=== PATIENT | female | born 1955 | race Caucasian/White ===

== ENCOUNTER 2018-02-13 13:24 | Outpatient (CLI) | payer BC | END 2018-02-13 13:25 | disposition home or self-care (01) | LOC: BICMAMMO 13:24 | PROVIDERS: ATTEND Internal Medicine Hematology & Oncology | DX: Z12.31 Encounter for screening mammogram for malignant neoplasm of breast (principal); Z85.3 Personal history of malignant neoplasm of breast | CPT/HCPCS: 77063; 77067 ==

== ENCOUNTER 2018-12-09 17:16 | Observation (INO) | payer MEDICARE, BC ==
[~2018-12-09 17:16] MED LIST: ISOVUE-370 76%-LOCM 1 ML ONE
[2018-12-09 18:09] LABS: #Eosinphils 0.1 thou/uL (0.0-0.7); #Lymphocytes 1.8 thou/uL (1.20-3.40); #Monocytes 0.6 thou/uL (0.11-0.59); #Neutrophils 3.7 thou/uL (1.40-6.50); %Basophils 0.7 % (0.0-1.0); %Eosinophils 1.7 % (0.0-10.0); %Lymphocytes 28.7 % (21.0-51.0); %Monocytes 9.6 % (0.0-10.0); %Neutrophils 59.2 % (42.0-75.0); Hemoglobin 13.1 g/dL (12.0-16.0); Mean Corpuscular HGB CONC 32.7 g/dL (32.0-36.0); Mean Corpuscular Hemoglobin 31.1 pg (27.0-31.0); Mean Platelet Volume 7.4 fL (7.4-10.4); Platelet Count 311 thou/uL (130-400); RBC Distribution Width 12.9 % (11.5-14.5); Red Blood Cell (RBC) Count 4.21 mill/uL (4.20-5.40); White Blood Cell (WBC) Count 6.3 thou/uL (4.8-10.8)
[2018-12-09 18:30] LABS: ALT (SGPT) 22 U/L (8-55); AST (SGOT) 23 U/L (5-34); Albumin 4.2 g/dL (3.4-4.8); Alkaline Phosphatase 102 U/L (40-150); Anion Gap 16 mmol/L (10-20); BUN (Urea Nitrogen) 20 mg/dL (9.8-20.1); Bilirubin, Total 0.3 mg/dL (0.2-1.2); CK (CPK) 117 U/L (29-168); Calc. Creatinine Clearance 0 mL/min (70-130); Calcium 8.8 mg/dL (7.8-10.44); Carbon Dioxide 23 mmol/L (23-31); Chloride 105 mmol/L (98-107); Estimated GFR-MDRD 67; Globulin 3.3 g/dL (2.4-3.5); Glucose 122 mg/dL (80-115); Potassium 3.7 mmol/L (3.5-5.1); Protein, Total 7.5 g/dL (6.0-8.3); Sodium 140 mmol/L (136-145)
[2018-12-09 19:03] LABS: CKMB 1.7 ng/mL (0-6.6)
[2018-12-09] MEDS ORDERED: Enoxaparin Sodium 80 MG/0.8 ML SYRINGE ONE (19:08)
[2018-12-09] MEDS ORDERED: Aspirin 325 MG TAB ONE (19:08)
[2018-12-09] MEDS ORDERED: Aspirin Chewable 81 MG TAB ONE (19:16)
--- NOTE | 2018-12-09 19:29 | CT ---
CT angiogram head: 12/09/2018 COMPARISON: None HISTORY: Left arm pain and left facial paresthesias TECHNIQUE: Axial CT imaging at 5 mm intervals from the vertex through the skull base without contrast . Axial CT imaging then performed with IV contrast using CT angiogram protocol at 1.25 mm intervals from vertex through skull base with coronal and sagittal 3-D reformatted imaging FINDINGS: The noncontrast enhanced imaging demonstrates no intracranial hemorrhage, midline shift, or mass effect. The imaged paranasal sinuses and mastoid air cells appear well aerated. Visualized distal vertebral arteries are unremarkable. The basilar artery and its branches are patent . There is no saccular aneurysm, high-grade stenosis, or vascular occlusion seen involving the posterior circulation. The imaged extracranial ICA appears unremarkable bilaterally. The A1 segment and the M1 segment appea rs unremarkable bilaterally. Distal MARLENY branches are unremarkable. The MCA bifurcation appears within normal limits. The distal MCA branches appear unremarkable bilaterally. No saccular aneurysm, high-grade stenosis, o r vascular occlusion is appreciated involving the anterior circulation. IMPRESSION: Noncontrast enhanced imaging demonstrates no acute findings. CT angiography demonstrates no central arterial occlusion.
[2018-12-09 21:46] LABS: Troponin I 0.346 ng/mL (< 0.028)
[2018-12-09 23:27] VITALS: BMI 28.5
[2018-12-10] MEDS ORDERED: Ondansetron PF 4 MG/2 ML Vial IVP PRN (01:20)
[2018-12-10] MEDS ORDERED: hydrALAZINE 20 MG/ML VIAL SLOW IVP PRN (01:20)
[2018-12-10] MEDS ORDERED: Nitroglycerin 0.4 MG TAB (25 Tab Bottle) SL PRN (01:20)
[2018-12-10] MEDS ORDERED: Acetaminophen 500 MG TAB PO PRN (01:20)
[2018-12-10] MEDS ORDERED: Ondansetron ODT 4 MG TAB PO PRN (01:20)
[2018-12-10 01:30] LABS: Critical Call Chem Troponin I RESULT DECREASING; Troponin I 0.308 ng/mL (< 0.028)
--- NOTE | 2018-12-10 03:51 | HP ---
PRIMARY CARE PROVIDER: Yonis Brown MD CHIEF COMPLAINT: Left arm and facial tingling. HISTORY OF PRESENT ILLNESS: This is a 63-year-old female who presents to [facility] Emergency Department complaining of 1-day history of left arm and facial tingling which began in the head scorer hours of 12/09/2018. The patient states she initially felt like she may have slept on her arm wrong thinking that the symptoms would elvia; however, they persisted for several hours after first noticing them. The patient denied any associated difficulty with speech, gait changes, or visual disturbance. The patient states she is right-hand dominant, but denied any direct trauma, injury, fever, chills, or similar symptoms in the past. The patient does admit to recent cardiac workup including cardiac catheterization completed approximately 4 to 5 days prior to this evaluation without stent placement or an acute intervention. The patient was medically managed including aspirin, carvedilol, and lisinopril. The patient states she was placed on aspirin 81 mg daily and has been taking aspirin therapy over the last 4 weeks. The patient states she remains very active with her [employer] and house work and denies being sedentary. In the emergency room, the patient underwent general evaluation including EKG and metabolic screening. The patient was noted with mild elevation of troponin I ranged between 0.308 to 0.346. The patient was given Lovenox and full-dose aspirin in the emergency room for suspected non-ST elevation myocardial infarction. PAST MEDICAL HISTORY: 1. Myocardial infarction, likely due to thrombus. 2. History of breast cancer diagnosed in 2004. 3. Hypothyroidism, status post thyroidectomy. PAST SURGICAL HISTORY: 1. Status post cardiac catheterization on 12/05/2018. 2. Status post left breast lumpectomy. 3. Status post thyroidectomy. CURRENT MEDICATIONS: 1. Carvedilol 3.125 mg p.o. b.i.d. 2. Levothyroxine 100 mcg p.o. daily. 3. Lisinopril 2.5 mg p.o. b.i.d. 4. Nitroglycerin 0.4 mg sublingually p.r.n. chest pain. 5. Glycopyrrolate half a tablet p.o. b.i.d. 6. Enteric-coated aspirin 81 mg p.o. daily. ALLERGIES: CODEINE SULFATE. FAMILY HISTORY: No inheritable disease per patient report. SOCIAL HISTORY: The patient is . Resides in [place], [place]. 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 Functional of all activities of daily living. No current alcohol, tobacco, or illicit drug use. REVIEW OF SYSTEMS: CONSTITUTIONAL: Negative for weight loss or gain, ability to conduct usual activities. SKIN: Negative for rash, itching. EYES: Negative for double vision, pain. ENT/MOUTH: Negative for nose bleeding, neck stiffness, pain, tenderness. CARDIOVASCULAR: Negative for palpitations, dyspnea on exertion, orthopnea. RESPIRATORY: Negative for shortness of breath, wheezing, cough, hemoptysis, fever or night sweats. GASTROINTESTINAL: Negative for poor appetite, abdominal pain, heartburn, nausea, vomiting, constipation, or diarrhea. GENITOURINARY: Negative for urgency, frequency, dysuria, nocturia. MUSCULOSKELETAL: Negative for pain, swelling. NEUROLOGIC/PSYCHIATRIC: Negative for anxiety, depression. ALLERGY/IMMUNOLOGIC: Negative for skin rash, bleeding tendency. Otherwise, negative except as stated per HPI. PHYSICAL EXAMINATION: VITAL SIGNS: On admission, blood pressure 133/70, pulse 85, respiratory rate 18, temperature 98 degrees Fahrenheit, O2 saturation 97% on room air. GENERAL APPEARANCE: This is a 63-year-old female, alert and oriented x3, pleasant, conversant, in no acute distress. HEENT: Pupils are equal, round, and reactive to light and accommodation. Extraocular muscles are intact. No scleral icterus. No conjunctival injection. Nares are patent. Op is clear. NECK: Supple. No cervical adenopathy. No thyromegaly. No carotid bruits. No JVD appreciated. No meningeal signs noted. CHEST: Lungs are clear to auscultation bilaterally. CARDIOVASCULAR: S1 and S2 without noted murmur, rub, or gallop. ABDOMEN: Rounded, soft, nontender, and nondistended. Bowel sounds are positive in all 4 quadrants. No hepatosplenomegaly. No abdominal bruits. No rebound or guarding appreciated. EXTREMITIES: Warm and dry with fair turgor. No clubbing, cyanosis, or asymmetric edema appreciated. Pulses are palpable distally at the dorsalis pedis, posterior tibial, and popliteal arteries bilaterally. Capillary refill less than 2 seconds. NEUROLOGIC: Cranial nerves II through XII are grossly intact. No focal or lateralizing signs appreciated. PERTINENT LAB AND X-RAY FINDINGS: Basic metabolic profile within normal limits. LFTs within normal limits. Troponin I ranged between 0.308 to 0.346. CBC within normal limits. CT angiogram of the [place] dated 12/09/2018, showed no acute focal stenosis. EKG dated 12/09/2018, by my interpretation shows sinus mechanism with heart rates in the 80s, attenuated R-waves noted in the precordial leads, normal axis, no acute ST-T wave changes appreciated. ASSESSMENT AND PLAN: 1. Non-ST elevation myocardial infarction. Suspected given patient's current troponin trend, recent left heart cardiac catheterization may be contributing source of elevated troponin I. We will continue aspirin 81 mg daily. Start Lipitor 40 mg p.o. daily. Continue carvedilol and lisinopril. Consult Cardiology Service for any further recommendations and management. 2. Left upper extremity paresthesias, exact etiology unclear. We will check carotid Doppler study to rule out focal stenosis. Continue aspirin 81 mg daily. Continue to monitor clinical response. 3. Coronary artery disease. Apparent thrombus as underlying etiology after recent cardiac catheterization. Continue aspirin as outlined previously. Start Lipitor 40 mg p.o. at bedtime. 4. Hypertension. Resume home blood pressure regimen and titrate to optimal response. 5. Prophylaxis. Sequential compression devices while in bed. Pepcid 20 mg p.o. b.i.d. CODE STATUS: Full. Surrogate medical decision maker is the patient's spouse. Job ID: [id number]
[2018-12-10 04:47] LABS: Band 5 % (5-11); Eosinophils 2 % (0-10); Hemoglobin 12.1 g/dL (12.0-16.0); Lymphocytes 30 % (21-51); MDiff Complete? YES; Mean Corpuscular HGB CONC 33.5 g/dL (32.0-36.0); Mean Corpuscular Hemoglobin 31.7 pg (27.0-31.0); Mean Corpuscular Volume 94.5 fL (78.0-98.0); Mean Platelet Volume 7.6 fL (7.4-10.4); Monocytes 5 % (0-10); Neutrophil 56 % (42-75); Platelet Count 272 thou/uL (130-400); Platelet Morphology Comment Appears Adequate; Reactive Lymphocytes 2 % (0-10); Red Blood Cell (RBC) Count 3.83 mill/uL (4.20-5.40); White Blood Cell (WBC) Count 6.3 thou/uL (4.8-10.8)
[2018-12-10 04:56] LABS: Anion Gap 14 mmol/L (10-20); BUN (Urea Nitrogen) 19 mg/dL (9.8-20.1); Calc. Creatinine Clearance 85 mL/min (70-130); Calcium 8.1 mg/dL (7.8-10.44); Carbon Dioxide 24 mmol/L (23-31); Chloride 107 mmol/L (98-107); Estimated GFR-MDRD 83; Glucose 90 mg/dL (80-115); Potassium 3.5 mmol/L (3.5-5.1); Sodium 141 mmol/L (136-145)
[2018-12-10] MEDS ORDERED: Levothyroxine Sodium 100 MCG TAB PO SCH (06:00)
--- NOTE | 2018-12-10 08:29 | ULT ---
BILATERAL CAROTID DUPLEX ULTRASOUND: HISTORY: Left upper kidney paresthesias TECHNIQUE: Grayscale, color-flow and spectral Doppler ultrasound imaging of the extracranial carotid artery syst ems was performed bilaterally. FINDINGS: Mild plaque formation. The peak systolic velocity in the right ICA measures 78 cm/s. The peak systolic velocity in the left ICA measures 69 cm/s. Vertebral flow: antegrade, bilaterally. IMPRESSION: No hemodynamically significant stenosis of Both ICAs.
[2018-12-10] MEDS ORDERED: Aspirin 81 mg Enteric Coated Tablet PO SCH (09:00)
[2018-12-10] MEDS ORDERED: Glycopyrrolate 1 MG TAB PO SCH (09:00)
[2018-12-10] MEDS ORDERED: Carvedilol 3.125 MG TAB PO SCH (09:00)
[2018-12-10] MEDS ORDERED: Lisinopril 5 MG TAB PO SCH (09:00)
[2018-12-10] MEDS ORDERED: Famotidine 20 MG TAB PO SCH (09:00)
--- NOTE | 2018-12-10 14:40 | CON ---
DATE OF CONSULTATION: PRIMARY CARE DOCTOR: Yonis Brown MD PRIMARY GENERAL UTILITY WORKER: Elzbieta Chris MD REASON FOR CARDIOLOGY CONSULT: Non-STEMI. HISTORY OF PRESENT ILLNESS: Ms. Cannon is a 63-year-old female with a significant history of Lakeisha-Fitzpatrick disease, hypothyroidism, chronic systolic heart failure with EF 35% to 40%, coronary artery disease with status post cardiac catheterization in November 2018 with 100% occlusion in the LAD with akinetic and dyskinetic distal inferior wall and distal anterior apex. The patient states that she had a chest heaviness on November 21, 2018. At that time, she refused to go to the Emergency Department for further evaluation. She had shortness of breath, feeling fatigued for couple days. Then, she had a cardiac catheterization on December 05 and she find out she had a clot in her LAD. She came to Emergency Department for tingling to her bilateral upper arm and to the face. She denied any chest pain, heaviness, tightness, shortness of breath, dizziness, lightheadedness, or any other cardiac complaints. She continued having the mild tingling to the left upper arm; however, she denied any other cardiac complaints at this moment. The patient had echocardiograms done on November 28, 2018, with EF 35% to 40%, akinetic apex, mild left atrial enlargement, [id number] mitral valve regurgitation, mild tricuspid regurgitation, and moderate elevated right ventricular systolic pressure. The patient had underwent a cardiac catheterization on December 05, 2018, with 100% occlusion in the mid LAD, akinetic and dyskinetic distal anterior apex and distal anterior wall with EF 35% to 40%. PAST MEDICAL HISTORY: Myocardial infarction most likely due to the thrombosis, history of breast cancer in 2004, hypothyroidism, and Lakeisha-Fitzpatrick disease. PAST SURGICAL HISTORY: 1. Cardiac catheterization on December 05, 2018. 2. Status post left breast lumpectomy. 3. Status post thyroidectomy. FAMILY HISTORY: There is a significant family history of diabetes and hypertension, and the patient's father had a history of heart disease and stroke. SOCIAL HISTORY: She is . She is living with her . She has a children, who live well. She does not do the exercise. She denies EtOH, tobacco, or illicit drug abuse. ALLERGIES: SHE IS ALLERGIC TO CODEINE. MEDICATIONS: The patient's current medications; 1. Carvedilol 3.125 mg twice a day. 2. Lisinopril 2.5 mg twice a day. 3. Synthroid 112 mcg tablet once a day. 4. Nitroglycerin 0.4 mg as needed. 5. Glycopyrrolate half tablet twice a day. 6. Aspirin 81 mg once a day. REVIEW OF SYSTEMS: A 12-point review of systems negative unless otherwise mentioned in the HPI. PHYSICAL EXAMINATION: VITAL SIGNS: Blood pressure 111/68, temperature 98.2, pulse is 71 and sinus rhythm, respiratory rate 16, and O2 saturation 92% with room air. GENERAL: The patient is alert and oriented x4, not in acute distress. HEENT: Head, normocephalic and atraumatic. Eyes, extraocular muscle movement intact. ENT and mouth, oral and nasal mucosa moist without lesion. NECK: Supple. Normal range of motion. No JVD. RESPIRATORY: Clear to auscultate bilaterally. No wheezing, rales, or rhonchi noted. CARDIOVASCULAR: Regular rate and rhythm. Normal S1 and S2. There is no S3 or S4. No significant murmur, hives, or thrill noted. 2+ pulses in the bilateral lower extremities. No edema in the lower extremities. ABDOMEN: Soft and nontender. No mass to palpitate. Bowel sounds are present. SKIN: Warm and dry. No lesion, erythema, or rash noted. MUSCULOSKELETAL: The patient is able to move all extremities without difficulty. However, the patient had still pain in the bilateral upper extremities with movement. NEUROLOGIC: The patient is alert and oriented x4, nonfocal. PSYCHIATRIC: The patient's mood is appropriate. RADIOLOGY: CT angiogram in the brain shows no central artery occlusion. The patient is going to have CA today. The patient had carotid Doppler study, which showed no significant stenosis in bilateral ICA. LABORATORY DATA: Hematology; WBC 6.3, hemoglobin 12.1, hematocrit 36.1, and platelets 272. Sodium 141, potassium 3.5, BUN 19, and creatinine 0.71. CK-MB 1.7 and troponin 0.316, 0.346, and 0.308. ASSESSMENT AND PLAN: 1. Type 2 myocardial infarction. The patient's troponin is indeterminate, possible due to recent myocardial infarction from thrombosis in mid left anterior descending, possible on November 21, 2018. At this moment, the patient denied any chest pain, heaviness, tightness, or any other cardiac complaints. We discuss above viability study; however, the patient and family member would like to think about the test. If the patient agreed to have the test, we can order as an outpatient. The patient's blood pressure is stable at this moment. She is on aspirin 81 mg once a day, atorvastatin 40 mg once a day, carvedilol 3.125 mg once a day, lisinopril 2.5 mg twice a day, and nitroglycerin 0.4 mg sublingual. 2. Chronic systolic heart failure. Ejection fraction 35% to 40%. She is stable with room air. She denied edema in lower extremities. Abdomen bloating. She is on carvedilol and lisinopril. She does not have any diuretic at this moment. However, there are no edema or complaining of shortness of breath at this moment. The patient's creatinine is stable at this moment. 3. Hypothyroidism. She is on thyroid medication, which is managed by primary care doctor. 4. Lakeisha-Fitzpatrick disease, which is managed by primary care doctor also. Thank you very much for allowing the Cardiology Service to participate in this patient. We will follow along the patient's care team and make further recommendations as appropriate. Job ID: [id number]
--- NOTE | 2018-12-10 15:08 | PDOC.CTH ---
Cardiology Progress Note - Objective Vital Signs Temp Pulse Resp BP Pulse Ox 12/10/18 11:06 98.2 F 71 16 111/68 92 L 12/10/18 09:55 71 12/10/18 07:37 97.8 F 71 16 92/51 L 91 L 12/10/18 04:00 97.7 F 72 16 103/56 L 93 L Weight 151 lb 12/09/18 12/10/18 12/11/18 06:59 06:59 06:59 Intake Total 410 480 Balance 410 480 - Labs Result Diagrams: 12/10/18 04:13 12/10/18 04:13 Troponin/CKMB CK-MB (CK-2) 1.7 ng/mL (0-6.6) 12/09/18 18:05 Troponin I 0.308 ng/mL (< 0.028) H* 12/10/18 00:39 - Assessment/Plan <addendum> The pt and family reported that she has hx of breast cancer and radiation therapy. The radiation therapy for breast cancer may increase the risk of scar to LAD.
--- NOTE | 2018-12-10 15:50 | MRI ---
MRI OF THE BRAIN WITHOUT CONTRAST: 12/10/18 HISTORY: Left facial/arm paresthesia. FINDINGS: Correlation is made with the previous day's CT scan. No restricted diffusion is seen. No evidence of infarct, hemorrhage, midline shift or abnormal extra- axial fluid collections is noted. The ventricular size is appropriate and the basilar cisterns patent . There is mucosal disease in the paranasal sinuses. IMPRESSION: No evidence of acute intracranial process. POS: OFF
[2018-12-10 15:58] VITALS: BP 100/60; TEMP 98.2
[2018-12-10] MEDS ORDERED: Lisinopril 2.5 MG TAB PO SCH (21:00)
[2018-12-10] MEDS ORDERED: Prevnar 13-Val Conj/PF 0.5 ML SYRINGE IM ONE (21:00)
[2018-12-10] MEDS ORDERED: Atorvastatin Calcium 40 MG TAB PO SCH (21:00)
--- NOTE | 2018-12-11 01:10 | DIS ---
DATE OF ADMISSION: 12/09/2018 DATE OF DISCHARGE: 12/10/2018 CHIEF COMPLAINT ON ADMISSION: Left arm and facial tingling. DISCHARGE DIAGNOSES: 1. Left upper extremity and facial paresthesias, resolved, unknown etiology, questionably transient ischemic attack versus anginal equivalent, acute cerebrovascular accident ruled out. 2. Type 2 myocardial infarction with troponin 0.316, 0.346, and 0.308 respectively. This may be residual after a suspected myocardial event on November 21, 2018. 3. Previous myocardial infarction, left heart catheterization performed December 05, 2018, revealed complete occlusion of the mid LAD. 4. Ischemic cardiomyopathy without acute exacerbation, EF 35% to 40%. 5. Hypertension. 6. History of breast cancer, status post treatment. BRIEF HOSPITAL COURSE: Ms. Cannon is a pleasant 63-year-old female, who presented to the hospital after having some episodes of left facial numbness as well as left arm tingling. The patient was concerned about a possible cardiac event given her recent diagnosis of previous MD, which likely occurred on November 21 and subsequent heart catheterization on December 05, just several days ago. When she arrived to the emergency department, her troponin was noted to be elevated as above. She was given aspirin, Lovenox, and admitted for risk stratification and Cardiology consult. Dr. Chris, her media specialist, did see the patient and recommended continued medical management with possibility of a viability study in the future as an outpatient, which the patient will consider. There was some concern for transient ischemic attack. Given the patient's presenting symptoms, she did have CTA of the head and neck, which revealed no significant stenosis. Brain MRI showed no acute intracranial abnormalities. She was cleared for discharge by Cardiology. The patient has no complaints at this time. Her presenting symptoms have all resolved and workup here has been negative aside from the troponin, which is likely residual from previous cardiac event. DISCHARGE CONDITION: Stable. DISCHARGE DISPOSITION: Home. FOLLOWUP CARE AND INSTRUCTIONS: The patient will follow up with Dr. Chris as recommended. She will continue her cardiac medications to include aspirin, statin, carvedilol 3.125 mg b.i.d., and lisinopril 2.5 daily. She will continue sublingual nitroglycerin p.r.n. I have explained to the patient that her symptoms could possibly be a result of some cervical radiculopathy, and she will follow up with her primary care physician regarding this. She will follow up with Dr. Chris regarding future cardiac testing including viability study. The patient will be discharged home in good condition today. She has been counseled heavily on heart healthy and low-sodium diet given her mildly reduced left ventricular systolic function. She has no overt signs of volume overload at this time. Job ID: [id number]
--- NOTE | 2018-12-11 15:41 | EKG ---
Test Reason : Blood Pressure : / mmHG Vent. Rate : 086 BPM Atrial Rate : 086 BPM P-R Int : 142 ms QRS Dur : 080 ms QT Int : 362 ms P-R-T Axes : 054 023 091 degrees QTc Int : 433 ms Normal sinus rhythm Low voltage QRS Possible Inferior infarct , age undetermined Cannot rule out Anterior infarct , age undetermined Abnormal ECG Confirmed by BABAR LOMELI, TOD Glasgow ([id number]), multimedia editor ALESSANDRA MASTERS ([id number]) on 12/11/2018 3:40:59 PM Referred By: Confirmed By:TOD ECKERT MD
--- NOTE | 2018-12-12 00:18 | CON ---
DATE OF CONSULTATION: 12/10/2018 INDICATION FOR CONSULTATION: A 63-year-old female with tingling, chest discomfort, history of coronary artery disease. We were asked to see her due to the abnormal symptoms which she has had these somewhat similar to what she has had in the past when she did suffer a myocardial infarction. Unfortunately, she was unaware that she had an SD until she underwent cardiac catheterization. She did have some pain back in earlier in October or November when I saw her. She eventually underwent cardiac catheterization after having the abnormal stress test and she was found to have a completely occluded left anterior descending artery. The other vessels remained patent. Her ejection fraction was 35% to 40%. In further discussion with the patient, she did admit that she has had breast cancer and underwent radiation therapy and this is the likely etiology of the stenosis and the occlusion of the left anterior descending artery. The distal anterior wall was akinetic and dyskinetic. It was not felt that even trying to open this totally occluded vessel would change any of her myocardial function. PAST MEDICAL HISTORY: Please refer to the notes dictated by the nurse practitioner. SOCIAL HISTORY: Please refer to the notes dictated by the nurse practitioner. FAMILY HISTORY: Please refer to the notes dictated by the nurse practitioner. REVIEW OF SYSTEMS: Please refer to the notes dictated by the nurse practitioner. MEDICATIONS: Please refer to the notes dictated by the nurse practitioner. ALLERGIES: PLEASE REFER TO THE NOTES DICTATED BY THE NURSE PRACTITIONER. PHYSICAL EXAMINATION: GENERAL: Reveals a well-developed, well-nourished female, who is in no acute distress. VITAL SIGNS: Stable. Blood pressure was 110/68, heart rate was 71 and regular, respiratory rate was 16. HEENT: Unremarkable. CHEST: Clear to auscultation. CARDIOVASCULAR: Revealed a regular rate and rhythm with normal S1 and S2. No significant murmurs, heaves, thrills, bruits, or rubs are noted. ABDOMEN: Soft and nontender. Positive bowel sounds were present. NEUROLOGIC: The patient appeared to be fully intact with normal strength and normal tone. She was complaining of some discomfort and tingling or pain in the upper extremities and also radiation more into the left arm. Otherwise, there were no significant EKG changes. NEUROLOGIC: The patient had no gross focal motor deficit. She had normal strength and normal tone. SKIN: Warm and dry. PSYCHOSOCIAL: Appeared to be within normal limits. IMAGING: CT scan showed evidence of no significant findings. She was to undergo an MRI. LABORATORY DATA: Also was unremarkable for any significant elevation of the cardiac enzymes more than usual. She has had a slight elevation, but the cardiac enzymes remained at 0.31 and then 0.34, and then 0.308. IMPRESSION: 1. Middle-aged female with history of previous myocardial infarction, totally occluded left anterior descending artery. The other vessels had no evidence of stenosis or plaque formation. It is felt that this was due to previous radiation therapy. At this time, we would just continue medical management. She is not a candidate for further intervention. 2. Congestive heart failure with ejection fraction of 35% to 40%. She does not meet requirements for defibrillator. She has been stable and without any evidence of arrhythmias. We will continue her on present medications. Overall cardiac status, she appears to be stable. Job ID: [id number]
== END 2018-12-10 17:25 | disposition home or self-care (01) ==
LOC: ERS 17:16 → 2SE 22:49
PROVIDERS: ADMIT Internal Medicine; ATTEND Internal Medicine
DX: R20.2 Paresthesia of skin (principal); I21.A1 Myocardial infarction type 2; I25.5 Ischemic cardiomyopathy; I10 Essential (primary) hypertension; E89.0 Postprocedural hypothyroidism; I25.10 Atherosclerotic heart disease of native coronary artery without angina pectoris; Z79.82 Long term (current) use of aspirin; Z79.899 Other long term (current) drug therapy; Z88.2 Allergy status to sulfonamides; Z88.5 Allergy status to narcotic agent
CPT/HCPCS: 70496; 70551; 80048; 80053; 82550; 82553; 84484 ×3; 85007; 85025; 85027; 93005; 93880; 96372; 99285; G0378 ×3; 36415; J1650; Q9966

== ENCOUNTER 2019-02-20 11:46 | Outpatient (CLI) | payer MEDICARE, BC ==
--- NOTE | 2019-02-20 15:55 | MMO ---
Bilateral MAMMO Bilat Screen [facility]. CLINICAL HISTORY: Patient is 63 years old and is seen for screening. The patient has no family history of breast cancer. The patient has a history of Core biopsy procedure revealed invasive ductal left breast carcinoma in June,. The patient has a history of left Lumpectomy in - malignant. VIEWS: The views performed were: bilateral craniocaudal with tomosynthesis and bilateral mediolateral oblique with tomosynthesis. FILMS COMPARED: The present examination has been compared to prior imaging studies performed at [facility] on 02/02/2015, 02/07/2016, 02/08/2017 and 02/13/2018. This study has been interpreted with the assistance of computer-aided detection. MAMMOGRAM FINDINGS: There are scattered fibroglandular densities. Finding 1: Benign calcifications are noted bilaterally. Finding 2: There is a stable post-surgical scar seen in the left breast. There are no suspicious masses, suspicious calcifications, or new areas of architectural distortion. IMPRESSION: THERE IS NO MAMMOGRAPHIC EVIDENCE OF MALIGNANCY. A ROUTINE FOLLOW-UP MAMMOGRAM IN 1 YEAR IS RECOMMENDED. THE RESULTS OF THIS EXAM WERE SENT TO THE PATIENT. ACR BI-RADS Category 2 - Benign finding MAMMOGRAPHY NOTE: 1. A negative mammogram report should not delay a biopsy if a dominant of clinically suspicious mass is present. 2. Approximately 10% to 15% of breast cancers are not detected by mammography. 3. Adenosis and dense breasts may obscure an underlying neoplasm. Reported by: PAYAM KHAN MD Electonically Signed: [id number]
== END 2019-02-20 11:47 | disposition home or self-care (01) ==
LOC: BICMAMMO 11:46
PROVIDERS: ATTEND Internal Medicine Hematology & Oncology
DX: Z12.31 Encounter for screening mammogram for malignant neoplasm of breast (principal); Z98.890 Other specified postprocedural states; Z85.3 Personal history of malignant neoplasm of breast
CPT/HCPCS: 77063; 77067

== ENCOUNTER 2019-03-26 11:31 | Outpatient (CLI) | payer MEDICARE, BC ==
[2019-03-26] MEDS ORDERED: Iopamidol 370 76% 100 ML VIAL ONE (13:57)
--- NOTE | 2019-03-26 14:09 | CT ---
CTA of the thorax utilizing IV contrast and Three-D reformatted imaging INDICATION: History of thoracic aortic aneurysm seen on echocardiogram COMPARISON: Prior CT of the chest and abdomen dated February 22, 2009 FINDINGS: The ascending aorta measures 3 cm. The aortic arch measures 2.4 cm. The descending thoracic aorta at the level right main pulmonary artery measures 1.9 cm. The aorta at the level of the hiatus measures 1.8 cm. The suprarenal abdominal aorta measures 1.6 cm. Visualized infrarenal abdominal aort a measures 1.6 cm. Visualized celiac, SMA and renal artery origins are widely patent. No dissection or aneurysmal dilatation is grossly evident. There is postsurgical change involving the left axillary region and left anterolateral chest wall. Th ere is fibrotic change involving the anterolateral aspect of the left long likely related to prior radiation therapy. There is a 5 mm pulmonary nodule within the right middle lobe on image 56 of serie s 3. Additional smaller sub-4 mm subpleural pulmonary nodule seen within the right middle lobe. Both are stable since 2008. There is small hiatal hernia. There is diffuse osteopenia. There is scattered degenerative change. Th ere is healed anterolateral deformity involving the upper left chest wall, particularly the anterolateral fourth through sixth ribs. IMPRESSION: 1. No acute aortic stenosis, occlusion or aneurysmal formation seen involving the thoracic aorta and proximal abdominal aorta. 2. Pulmonary nodules within the right middle lobe are stable since 2008 are benign. 3. 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
== END 2019-03-26 11:32 | disposition home or self-care (01) ==
LOC: CT 11:31
PROVIDERS: ATTEND Internal Medicine Cardiovascular Disease
DX: I50.22 Chronic systolic (congestive) heart failure (principal); R93.1 Abnormal findings on diagnostic imaging of heart and coronary circulation; R91.8 Other nonspecific abnormal finding of lung field; Z98.890 Other specified postprocedural states
CPT/HCPCS: 71275; 82565; Q9967

== ENCOUNTER 2020-04-29 11:39 | Outpatient (CLI) | payer MEDICARE, BC ==
--- NOTE | 2020-04-29 13:02 | MMO ---
Bilateral MAMMO Bilat Screen [facility]. CLINICAL HISTORY: Patient is 64 years old and is seen for screening. The patient has no family history of breast cancer. The patient has a history of Core biopsy procedure revealed invasive ductal left breast carcinoma in June,. The patient has a history of left Lumpectomy in - malignant. VIEWS: The views performed were: bilateral craniocaudal with tomosynthesis; bilateral mediolateral oblique with tomosynthesis; left mediolateral; and left exaggerated craniocaudal. FILMS COMPARED: The present examination has been compared to prior imaging studies performed at [facility] on 02/07/2016, 02/08/2017, 02/13/2018 and 02/20/2019. This study has been interpreted with the assistance of computer-aided detection. MAMMOGRAM FINDINGS: There are scattered fibroglandular densities. Finding 1: There are stable benign appearing calcifications seen in both breasts. There are also vascular calcifications. Finding 2: There are stable post operative changes seen in the left breast. There are no suspicious masses, suspicious calcifications, or new areas of architectural distortion. IMPRESSION: THERE IS NO MAMMOGRAPHIC EVIDENCE OF MALIGNANCY. A ROUTINE FOLLOW-UP MAMMOGRAM IN 1 YEAR IS RECOMMENDED. THE RESULTS OF THIS EXAM WERE SENT TO THE PATIENT. ACR BI-RADS Category 2 - Benign finding MAMMOGRAPHY NOTE: 1. A negative mammogram report should not delay a biopsy if a dominant of clinically suspicious mass is present. 2. Approximately 10% to 15% of breast cancers are not detected by mammography. 3. Adenosis and dense breasts may obscure an underlying neoplasm. Reported by: LULY GREEN MD Electonically Signed: [id number]
== END 2020-04-29 11:40 | disposition home or self-care (01) ==
LOC: BICMAMMO 11:39
PROVIDERS: ATTEND Internal Medicine Hematology & Oncology
DX: Z12.31 Encounter for screening mammogram for malignant neoplasm of breast (principal); Z85.3 Personal history of malignant neoplasm of breast; Z98.890 Other specified postprocedural states
CPT/HCPCS: 77063; 77067

== ENCOUNTER 2021-05-03 10:08 | Outpatient (CLI) | payer MEDICARE, BC | END 2021-05-03 10:09 | disposition home or self-care (01) | LOC: BICMAMMO 10:08 | PROVIDERS: ATTEND Internal Medicine Hematology & Oncology | DX: Z12.31 Encounter for screening mammogram for malignant neoplasm of breast (principal); Z85.3 Personal history of malignant neoplasm of breast; Z98.890 Other specified postprocedural states | CPT/HCPCS: 77063; 77067 ==

== ENCOUNTER 2022-05-23 10:35 | Outpatient (CLI) | payer MEDICARE, BC | END 2022-05-23 10:36 | disposition home or self-care (01) | LOC: BICMAMMO 10:35 | PROVIDERS: ATTEND Family Medicine | DX: Z12.31 Encounter for screening mammogram for malignant neoplasm of breast (principal); Z98.890 Other specified postprocedural states; Z85.3 Personal history of malignant neoplasm of breast | CPT/HCPCS: 77063; 77067 ==

== ENCOUNTER 2023-02-14 09:10 | Outpatient (CLI) | payer MEDICARE, BC | END 2023-02-14 09:11 | disposition home or self-care (01) | LOC: BICMAMMO 09:10 | PROVIDERS: ATTEND Family Medicine | DX: Z13.820 Encounter for screening for osteoporosis (principal); M85.89 Other specified disorders of bone density and structure, multiple sites; Z78.0 Asymptomatic menopausal state | CPT/HCPCS: 77080 ==

== ENCOUNTER 2023-06-04 12:13 | Outpatient (CLI) | payer MEDICARE | END 2023-06-04 12:14 | disposition home or self-care (01) | LOC: BICMAMMO 12:13 | PROVIDERS: ATTEND Internal Medicine Hematology & Oncology | DX: Z12.31 Encounter for screening mammogram for malignant neoplasm of breast (principal); Z85.3 Personal history of malignant neoplasm of breast; Z98.890 Other specified postprocedural states | CPT/HCPCS: 77063; 77067 ==

== ENCOUNTER 2024-02-05 17:28 | Emergency (ER) | payer BC, MEDICARE ==
[2024-02-05 19:09] LABS: #Basophils 0.03 10x3/uL (0.0-0.2); %Basophils 0.4 % (0.0-1.0); %Eosinophils 2.2 % (0.0-10.0); %Lymphocytes 18.7 % (21.0-51.0); %Neutrophils 69.4 % (42.0-75.0); Hematocrit 40.1 % (36.0-47.0); Hemoglobin 13.3 g/dL (12.0-16.0); Mean Corpuscular HGB CONC 33.2 g/dL (32.0-36.0); Mean Corpuscular Hemoglobin 31.3 pg (27.0-31.0); Mean Corpuscular Volume 94.4 fL (78.0-98.0); Mean Platelet Volume 9.7 fL (7.4-10.4); Platelet Count 272 10x3/uL (130-400); RBC Distribution Width 14.8 % (11.5-14.5); Red Blood Cell (RBC) Count 4.25 mill/uL (4.20-5.40)
[2024-02-05 19:26] LABS: Troponin I 0.011 ng/mL (< 0.028)
[2024-02-05 19:33] LABS: ALT (SGPT) 29 U/L (8-55); AST (SGOT) 31 U/L (5-34); Alkaline Phosphatase 102 U/L (40-110); Anion Gap 16 mmol/L (10-20); BUN (Urea Nitrogen) 16 mg/dL (9.8-20.1); Bilirubin, Total 0.3 mg/dL (0.2-1.2); Calc. Creatinine Clearance 0 mL/min (70-130); Calcium 8.7 mg/dL (7.8-10.44); Carbon Dioxide 25 mmol/L (23-31); Chloride 105 mmol/L (98-107); Estimated GFR 82; Globulin 3.9 g/dL (2.4-3.5); Glucose 101 mg/dL (80-115); Protein, Total 7.9 g/dL (5.8-8.1); Sodium 142 mmol/L (136-145)
== END 2024-02-05 19:58 | disposition home or self-care (01) ==
LOC: ERS 17:28
DX: F41.9 Anxiety disorder, unspecified (principal)
CPT/HCPCS: 36415; 71046; 80053; 84484; 85025; 93005

== ENCOUNTER 2024-06-24 14:41 | Outpatient (CLI) | payer MEDICARE | END 2024-06-24 14:42 | disposition home or self-care (01) | LOC: BICMAMMO 14:41 | PROVIDERS: ATTEND Internal Medicine Hematology & Oncology | DX: Z12.31 Encounter for screening mammogram for malignant neoplasm of breast (principal); Z85.3 Personal history of malignant neoplasm of breast; Z98.890 Other specified postprocedural states | CPT/HCPCS: 77063; 77067 ==

== ENCOUNTER 2025-03-12 10:21 | Outpatient (CLI) | payer MEDICARE | END 2025-03-12 10:22 | disposition home or self-care (01) | LOC: BICMAMMO 10:21 | PROVIDERS: ATTEND Family Medicine | DX: Z78.0 Asymptomatic menopausal state (principal); E28.39 Other primary ovarian failure; M85.89 Other specified disorders of bone density and structure, multiple sites | CPT/HCPCS: 77080 ==